=== PATIENT | male | born 1960 | race Two or more races ===

== ENCOUNTER 2016-05-26 11:05 | Emergency (ER) | payer BC ==
[~2016-05-26] VITALS: Ht 182.9 cm; Wt 79.4 kg
[2016-05-26 11:10] VITALS: BP 153/65
[2016-05-26 12:05] VITALS: BP 148/95
--- NOTE | 2016-05-26 12:22 | Emergency Room Report ---
History of Present Illness General Chief Complaint: Eye Problems Source: Patient Present Illness HPI Patient presents with initial complaint approximately one to 2 hours ago having a sensation of a flashing light in the periphery of his right eye This lasted for about 10 minutes he was also describing sensation of having what he states or floaters The symptoms fully resolved and the patient presents for evaluation Denies any headache denies any visual changes at this time Denies any neck pain or photophobia Patient with glasses for reading only Allergies: Coded Allergies: No Known Allergies (Unverified , 05/26/16) Patient History Past Medical History: see triage record Pertinent Family History: none Reviewed Nursing Documentation: PMH: Agreed, PSxH: Agreed Nursing Documentation-PMH Past Medical History: No Stated History Review of Systems All Other Systems: negative except mentioned in HPI Physical Exam Vital Signs Date Time Temp Pulse Resp B/P Pulse Ox O2 Delivery O2 Flow Rate FiO2 05/26/16 11:10 97 20 153/65 100 Room Air 05/26/16 11:11 98.1 Sp02 EP Interpretation: reviewed, normal General Appearance: well appearing, no apparent distress Head: normocephalic, atraumatic Eyes: bilateral eye EOMI, bilateral eye Fundiscopic - Normal, bilateral eye PERRL ENT: normal pharynx, no angioedema Neck: supple Musculoskeletal: normal inspection Neurologic: alert, oriented x3, responsive Skin: normal color, no rash, warm/dry Medical Decision Making Diagnostic Impression: Primary Impression: Eye problem Additional Impression: Floaters ER Course Patient presents with a description of floaters/flashing lights on the lateral aspect of the visual field on the right side All symptoms have resolved patient has a benign medical screening evaluation and was provided referral to ophthalmology Patient's father's also an licensed audiologist and is talking to the patient as well Last Vital Signs Date Time Temp Pulse Resp B/P Pulse Ox O2 Delivery O2 Flow Rate FiO2 05/26/16 11:11 98.1 67 18 153/95 96 Room Air Status: unchanged Disposition: HOME, SELF-CARE Condition: Stable Referrals: ILSA SCHULTZ Patient Instructions: Eye Floaters Additional Instructions: Patient is provided with the discharge instructions notified to follow up with primary doctor in the next 2-3 days otherwise return to the er with any worsening symptoms. GUERRERO GALLO D.O. May 26, 2016 12:22
== END 2016-05-26 12:05 | disposition home or self-care (01) ==
LOC: EMR 11:35
DX: H43.391 Other vitreous opacities, right eye (principal)
CPT/HCPCS: 99282